=== PATIENT | male | born 1935 | race Caucasian/White ===

== ENCOUNTER 2016-06-20 10:09 | Emergency (ER) | payer MEDICARE ==
[~2016-06-20] VITALS: Ht 165.1 cm; Wt 93.9 kg
[~2016-06-20 10:09] MED LIST: CLOP75TA27 PO; [UNRECOGNIZED DRUG - REMARK]
[2016-06-20] MEDS ORDERED: FENTANYL PF 100 MCG/2 ML VIAL. IV ONE (11:15)
[2016-06-20] MEDS ORDERED: 0.9 % SODIUM CHLORIDE 10 ML DISP.SYRIN. IV PRN (11:15)
[2016-06-20] MEDS ORDERED: DEXAMETHASONE SOD PHOS 20 MG/5 ML VIAL. IV ONE (11:15)
--- NOTE | 2016-06-20 11:21 | PHYS DOC ---
Adult General Chief Complaint Chief Complaint: HAND PROBLEM HPI HPI Patient is a 81 year old male who presents the emergency room today with his and a "friend" (who assists in translating) with complaint of intermittent episodes of right hand and left knee swelling is been ongoing for several months. Patient has not seen a primary care doctor about this. He has not been evaluated by a home hospice rn or an internal medicine doctor for this. Patient denies any known history of inflammatory arthritide's. Patient denies history of peripheral vascular or peripheral arterial disease. He denies any history specifically of gout as well. He denies any injuries requiring surgical repair to either his right hand or his left knee. He denies fevers, chills, myalgias or arthralgias. Patient is a [place] immigrant with little understanding of the [place] medical process. He is requesting pain medication to help with the hand and knee pain. Patient has a history of insulin-dependent diabetes, chronic kidney disease stage I. He admits that he has not been doing a "very good job" of checking his blood sugar. Review of Systems Review of Systems Constitutional: Denies fever or chills [] Eyes: Denies change in visual acuity, redness, or eye pain [] HENT: Denies nasal congestion or sore throat [] Respiratory: Denies cough or shortness of breath [] Cardiovascular: No additional information not addressed in HPI [] GI: Denies abdominal pain, nausea, vomiting, bloody stools or diarrhea [] : Denies dysuria or hematuria [] Musculoskeletal: Denies back pain or joint pain [] Integument: Denies rash or skin lesions [] Neurologic: Denies headache, focal weakness or sensory changes [] Endocrine: Denies polyuria or polydipsia [] Current Medications Current Medications Current Medications Medications (Trade) Dose Ordered Sig/Gail Start Time Stop Time Status Last Admin Dose Admin Dexamethasone Sodium Phosphate (Decadron) 10 mg 1X ONCE 06/20/16 11:15 06/20/16 11:17 DC 06/20/16 11:30 10 MG Fentanyl Citrate (Fentanyl 2ml Vial) 50 mcg 1X ONCE 06/20/16 11:15 06/20/16 11:17 DC 06/20/16 11:30 50 MCG Sodium Chloride (Normal Saline Flush) 10 ml QSHIFT PRN 06/20/16 11:15 06/20/16 11:30 10 ML Allergies Allergies Allergies Coded Allergies Type Severity Reaction Last Updated Verified No Known Drug Allergies 07/28/13 No Physical Exam Physical Exam Constitutional: Well developed, well nourished, no acute distress, non-toxic appearance. [] HENT: Normocephalic, atraumatic, bilateral external ears normal, oropharynx moist, no oral exudates, nose normal. [] Eyes: PERRLA, EOMI, conjunctiva normal, no discharge. [] Neck: Normal range of motion, no tenderness, supple, no stridor. [] Cardiovascular:Heart rate regular rhythm, no murmur [] Lungs & Thorax: Bilateral breath sounds clear to auscultation [] Abdomen: Bowel sounds normal, soft, no tenderness, no masses, no pulsatile masses. [] Skin: Warm, dry, no erythema, no rash. [] Back: No tenderness, no CVA tenderness. [] Extremities: Patient's entire right hand is swollen with mild erythema to the skin that appears to be more inflammatory in nature. It stops at the level of his wrist. The hand is warm and dry. Patient maintains +2 point discrimination. He is able to flex and extend at each joint of his fingers. Patient does have an old, healing laceration to the distal phalanx of his index finger. There is no fluctuant pockets, induration or ascending lymphangitis. Patient's right upper and lower arm are normal in appearance and unaffected. Patient's left knee with anterior swelling consistent with an anterior effusion. Negative ballottement. Extensor mechanism is intact without high riding patella. There is no fusiform swelling or erythema. Patient does not complain of pain with passive range of motion. Ligaments are stable solid endpoints. Neurologic: Alert and oriented X 3, normal motor function, normal sensory function, no focal deficits noted. [] Psychologic: Affect normal, judgement normal, mood normal. [] Current Patient Data Vital Signs Vital Signs Date Time Temp Pulse Resp B/P Pulse Ox O2 Delivery O2 Flow Rate FiO2 06/20/16 11:00 97.8 78 18 140/74 97 Room Air 97.8 Lab Values Laboratory Tests Test 06/20/16 11:25 White Blood Count 7.1x10^3/uL (4.0-11.0) Red Blood Count 4.64x10^6/uL (4.30-5.70) Hemoglobin 13.7g/dL (13.0-17.5) Hematocrit 40.8% (39.0-53.0) Mean Corpuscular Volume 88fL (79-100) Mean Corpuscular Hemoglobin 30pg (25-35) Mean Corpuscular Hemoglobin Concent 34g/dL (31-37) Red Cell Distribution Width 14.5% (11.5-14.5) Platelet Count 135x10^3/uL (140-400) L Neutrophils (%) (Auto) 77% (31-73) H Lymphocytes (%) (Auto) 14% (24-48) L Monocytes (%) (Auto) 6% (0-9) Eosinophils (%) (Auto) 2% (0-3) Basophils (%) (Auto) 1% (0-3) Neutrophils # (Auto) 5.5x10^3uL (1.8-7.7) Lymphocytes # (Auto) 1.0x10^3/uL (1.0-4.8) Monocytes # (Auto) 0.4x10^3/uL (0.0-1.1) Eosinophils # (Auto) 0.1x10^3/uL (0.0-0.7) Basophils # (Auto) 0.0x10^3/uL (0.0-0.2) Erythrocyte Sedimentation Rate 77 (0-15) H Sodium Level 141mmol/L (136-145) Potassium Level 3.7mmol/L (3.5-5.1) Chloride Level 104mmol/L (98-107) Carbon Dioxide Level 26mmol/L (21-32) Anion Gap 11 (6-14) Blood Urea Nitrogen 33mg/dL (8-26) H Creatinine 1.9mg/dL (0.7-1.3) H Estimated GFR (Cockcroft-Gault) 34.0 BUN/Creatinine Ratio 17 (6-20) Glucose Level 250mg/dL (70-99) H Uric Acid 8.5mg/dL (3.5-7.2) H Calcium Level 9.4mg/dL (8.5-10.1) Total Bilirubin 0.8mg/dL (0.2-1.0) Aspartate Amino Transferase (AST) 24U/L (15-37) Alanine Aminotransferase (ALT) 26U/L (16-63) Alkaline Phosphatase 78U/L (46-116) Total Protein 7.9g/dL (6.4-8.2) Albumin 3.4g/dL (3.4-5.0) Albumin/Globulin Ratio 0.8 (1.0-1.7) L Laboratory Tests 06/20/16 11:25 Laboratory Tests 06/20/16 11:25 EKG EKG [] Radiology/Procedures Radiology/Procedures 3 views of patient's right hand and 3 views of patient's left knee were performed and interpreted by the radiologist. There is soft tissue swelling to each consistent with physical exam findings. There is mild to moderate degenerative changes in the patient's hand in the period there is no evidence of acute pathology, bony erosion or mass. Course & Med Decision Making Course & Med Decision Making Pertinent Labs and Imaging studies reviewed. (See chart for details) [] Dragon Disclaimer Dragon Disclaimer This electronic medical record was generated, in whole or in part, using a voice recognition dictation system. Departure Departure Impression: Primary Impression: Polyarthralgia Disposition: 01 HOME, SELF-CARE Condition: GOOD Referrals: KEVIN MARTINEZ MD (PCP) Patient Instructions: Arthralgia, [id number] Additional Instructions: 1. Physical exam findings and lab test are consistent with a rheumatoid problem. 2. Take the medication as prescribed. Keep in mind that steroids due to elevated blood sugar. You should be checking your blood sugar 3 times a day. 3. It will be very important for you to follow up with your primary care doctor as well as a home hospice rn. Your friend will assist you can establish an appointment with a home hospice rn. You need to see your doctor within the next 5 -7 days. Scripts Prednisone 10 Mg [id number] Mg PO DAILY 5 Days Prov:GWYN MENDOZA 06/20/16 Hydrocodone/Apap 5-325 ([place] 5-325 Tablet)1 Each Tablet1 Tab PO PRN Q6HRS PRN PAIN #15 TAB Prov:GWYN MENDOZA 06/20/16 GWYN MENDOZA Jun 20, 2016 11:21
[2016-06-20 11:34] LABS: BASO % 1 % (0-3); EOS % 2 % (0-3); HEMATOCRIT 40.8 % (39.0-53.0); HEMOGLOBIN 13.7 g/dL (13.0-17.5); LYMPH % 14 % (24-48); MEAN CORPUSCULAR HEMOGLOBIN 30 pg (25-35); MEAN CORPUSCULAR HGB CONC 34 g/dL (31-37); MEAN CORPUSCULAR VOLUME 88 fL (79-100); MONO % 6 % (0-9); NEUT % 77 % (31-73); PLATELET COUNT 135 x10^3/uL (140-400); RED BLOOD COUNT 4.64 x10^6/uL (4.30-5.70); RED CELL DISTRIBUTION WIDTH 14.5 % (11.5-14.5); WHITE BLOOD COUNT 7.1 x10^3/uL (4.0-11.0)
[2016-06-20 11:41] LABS: CALCIUM 9.4 mg/dL (8.5-10.1); CREATININE 1.9 mg/dL (0.7-1.3); POTASSIUM 3.7 mmol/L (3.5-5.1)
[2016-06-20 11:47] LABS: ALBUMIN 3.4 g/dL (3.4-5.0); ALBUMIN/GLOBULIN RATIO 0.8 (1.0-1.7); TOTAL BILIRUBIN 0.8 mg/dL (0.2-1.0); TOTAL PROTEIN 7.9 g/dL (6.4-8.2); URIC ACID 8.5 mg/dL (3.5-7.2)
--- NOTE | 2016-06-20 11:59 | RAD ---
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 The MCP joints are relatively noninvolved. Moderate degenerative change is present at the first CMC joint. No acute fracture or dislocation is identified. Arterial calcifications are present. IMPRESSION: 1. Moderate degenerative changes as described above. 2. No acute bony abnormality is detected. Left knee, 3 views, 06/20/2016: History: Pain and swelling No fracture or dislocation is identified. There is mild degenerative change at the patellofemoral articulation.. There is probably a joint effusion present, although effaced by the knee flexion on the lateral view. Mild subcutaneous edema is present IMPRESSION: 1. Degenerative change. 2. No acute bony abnormality is detected.
[2016-06-20] MEDS ORDERED: PRED-220 PO (13:54)
[2016-06-20] MEDS ORDERED: HYDR-971 PO (13:54)
[2016-06-20 14:05] VITALS: BP 154/77
[2016-06-21 03:16] LABS: RHEUMATOID FACTOR 17.5 IU/mL (0.0-13.9)
== END 2016-06-20 14:06 | disposition home or self-care (01) ==
LOC: ER 10:09
DX: M25.562 Pain in left knee (principal); M79.641 Pain in right hand; M79.89 Other specified soft tissue disorders; N18.1 Chronic kidney disease, stage 1; Z79.4 Long term (current) use of insulin; E11.9 Type 2 diabetes mellitus without complications
CPT/HCPCS: 36415; 73130; 73562; 80053; 84550; 85027; 85651; 86431; 96374; 96375; 99285; J1100; J3010

== ENCOUNTER → 2019-04-06 | Outpatient (CLI) | payer BC ==
[~2019-04-06] MED LIST changes: -CLOP75TA27 PO; +CLOP75TA57 PO; +HYDR-3164 PO; +PRED-220 PO
--- NOTE | 2019-04-06 20:14 | KCIC ---
CHEST PA LATERAL History: COPD Comparison: 12/07/2015 and 09/18/2016 2 view chest x-ray exams. Findings: The cardiomediastinal silhouette is normal. Pulmonary vasculature is normal. The lungs are clear. Pulmonary hyperinflation is present. Density about the aortic arch is stable. No pleural effusion or pneumothorax is seen. There is no acute bone abnormality. IMPRESSION: No acute cardiopulmonary process. COPD. Electronically signed by: Timothy Milan MD (04/06/2019 8:11 PM) [facility]
== END | disposition home or self-care (01) ==
LOC: KCIC 10:10
PROVIDERS: ATTEND Family Medicine
DX: J44.9 Chronic obstructive pulmonary disease, unspecified (principal)
CPT/HCPCS: 71046